=== PATIENT | male | born 1995 | race American Indian/Alaskan Native ===

== ENCOUNTER 2019-06-12 16:14 | Emergency (ER) | payer OTHER ==
[~2019-06-12] VITALS: Ht 167.6 cm; Wt 80.3 kg
[~2019-06-12 16:14] MED LIST: TYLENOL WITH C1 EACH PO
[2019-06-12] MEDS ORDERED: AUGMENTIN 875-1 EACH PO (17:30)
== END 2019-06-12 18:13 | disposition home or self-care (01) ==
LOC: ED 16:14
PROC: 0HQGXZZ Repair Left Hand Skin, External Approach (ICD-10-PCS; principal; 2019-06-12)
DX: S61.255A Open bite of left ring finger without damage to nail, initial encounter (principal); W54.0XXA Bitten by dog, initial encounter
CPT/HCPCS: 12001; 73140; 99283-25